=== PATIENT | female | born 1980 | race Caucasian/White ===

== ENCOUNTER 2018-12-02 21:55 | Emergency (ER) | payer OTHER ==
[2018-12-02] MEDS ORDERED: METOCLOPRAMIDE HCL ORAL SOLN 10 MG/10 ML UDCUP PO ONE (23:13)
[2018-12-02] MEDS ORDERED: MAG HYDROX/AL HYDROX/SIMETH SUSP 30 ML UDCUP PO ONE (23:13)
[2018-12-02] MEDS ORDERED: LIDOCAINE 2% VISCOUS SOLN 20 ML UDCUP PO ONE (23:13)
--- NOTE | 2018-12-02 23:29 | ER Document Report ---
Addendum entered and electronically signed by MAYKEL SU PA-C 12/02/18 23:34: Discharge - Discharge Clinical Impression: Cough Acute pharyngitis Qualifiers: Pharyngitis/tonsillitis etiology: unspecified etiology Qualified Code(s): J02.9 - Acute pharyngitis, unspecified Condition: Stable Disposition: HOME, SELF-CARE Instructions: Sore Throat ([facility]), Upper Respiratory Illness ([facility]) Additional Instructions: Maintain adequate fluid intake Take meds as directed Salt water gargles, throat sprays, mouthwash rinse, peroxide gargles tylenol as needed over the counter cold medication as needed for symptoms F/u: with your PCM in 2-3 days for a recheck Consider consult with ENT for ongoing/worsening symptoms Return to the ED with any fever, worsening pain, chest pain, neck pain/stiffness, shortness of breath, cough, drooling, trouble swallowing/breathing, abdominal pain, n/v/d, rash, or worsening/concerning symptoms otherwise. Prescriptions: Ondansetron [Zofran Odt 4 mg Tablet] 1 - 2 tab PO Q4H PRN #15 tab.rapdis PRN Reason: For Nausea/Vomiting Prednisone [Deltasone 10 mg Tablet] 10 mg PO DAILY #18 tablet Forms: Elevated Blood Pressure, Smoking Cessation Education Referrals: TREVOR COELHO DO [ASSOCIATE] - Follow up as needed Original Note: HPI - HPI Time Seen by Provider: 12/02/18 22:57 Pain Level: 5 Notes: Patient is a 38-year-old female no significant past medical history who presents to the emergency department complaining of a sore throat times 1 day with a dry nonproductive cough over the last week. Pt does have occ nausea w/o vomiting. Patient states that she is eating and drinking without difficulty otherwise. She is urinating normally and having normal bowel movements. She has tried [id number] meds with minimal relief. Patient states that she gets bronchitis about once per year. No other concerns or complaints at this time. No history of peritonsillar/pharyngeal abscess. Denies any headache, fever, neck pain, hoarseness, drooling, URI, chest pain, palpitations, syncope, shortness of breath, wheeze, dyspnea, abdominal pain, vomiting/diarrhea, urinary retention, dysuria, hematuria, or rash. - ROS Systems Reviewed and Negative: Yes All other systems reviewed and negative - CONSTITUTIONAL Constitutional: REPORTS: Chills - EENT EENT: REPORTS: Sore Throat - RESPIRATORY Respiratory: REPORTS: Coughing - dry - REPRODUCTIVE Reproductive: DENIES: : Past Medical History - Social History Smoking Status: Current Some Day Smoker Family History: Reviewed & Not Pertinent Patient has suicidal ideation: No Patient has homicidal ideation: No Renal/ Medical History: Denies: Hx Peritoneal Dialysis Vertical Provider Document - CONSTITUTIONAL Agree With Documented VS: Yes Notes: PHYSICAL EXAMINATION: GENERAL: Well-appearing, well-nourished and in no acute distress. A&Ox4. Answers questions appropriately. Moves comfortably w/o notable distress HEAD: Atraumatic, normocephalic. EYES: Pupils equal round and reactive to light, extraocular movements intact, sclera anicteric, conjunctiva are normal. ENT: EAC clear b/l. TM's intact b/l without erythema, fluid, or perforation. Nares patent and with clear discharge. oropharynx mild erythema without exudates. No tonsilar hypertrophy without erythema or exudate. No palatine shift. Uvula midline. No tongue protrusion. No drooling, hoarseness, or airway compromise. Moist mucous membranes. No sinus tenderness. NECK: Normal range of motion, supple without lymphadenopathy. No rigidity/meningismus. LUNGS: Breath sounds clear to auscultation bilaterally and equal. No wheezes rales or rhonchi. No retractions HEART: Regular rate and rhythm without murmurs, rubs, gallops. ABDOMEN: Soft, nontender, nondistended abdomen. No guarding, no rebound. No masses appreciated. Normal bowel sounds present. No CVA tenderness bilaterally. No hepatosplenomegaly. NEUROLOGICAL: Normal speech, normal gait. Normal sensory, motor exams PSYCH: Normal mood, normal affect. SKIN: Warm, Dry, normal turgor, no rashes or lesions noted. - INFECTION CONTROL TRAVEL OUTSIDE OF THE [place] IN LAST 30 DAYS: No Course - Re-evaluation Re-evalutation: 12/02/18 23:26 Patient is an afebrile, well-hydrated, 38-year-old female who presents to the emergency department with acute pharyngitis/cough which I suspect to be viral. Her cough may be post viral. Vitals are acceptable without any significant tachycardia, tachypnea, or hypoxia. PE is otherwise unremarkable. Lungs are clear to auscultation bilaterally. Patient is nontoxic-appearing and is tolerating p.o. without difficulty. GI cocktail did help. Rapid strep was negative with a throat culture pending. No further labs or imaging warranted at this time. Low suspicion for any meningitis, sepsis, peritonsillar/pharyngeal abscess, respiratory compromise, Richard's, or other emergent systemic condition at this time. Patient is aware this condition can change from initial presen tation and she needs to monitor symptoms closely. I will send her home with a prescription for Zofran as well as a steroid taper. Conservative measures otherwise for symptoms. Recheck with your PCM in 2-3 days. Return to the ED with any worsening/concerning symptoms otherwise as reviewed in discharge. Patient is in agreement. - Vital Signs Vital signs: Temp Pulse Resp BP Pulse Ox 97.6 F 77 17 128/77 H 100 12/02/18 22:24 12/02/18 22:24 12/02/18 22:24 12/02/18 22:24 12/02/18 22:24 Discharge - Discharge Clinical Impression: Cough Acute pharyngitis Qualifiers: Pharyngitis/tonsillitis etiology: unspecified etiology Qualified Code(s): J02.9 - Acute pharyngitis, unspecified Condition: Stable Disposition: HOME, SELF-CARE Instructions: Sore Throat ([facility]), Upper Respiratory Illness ([facility]) Additional Instructions: Maintain adequate fluid intake Take meds as directed Salt water gargles, throat sprays, mouthwash rinse, peroxide gargles tylenol/ibuprofen as needed over the counter cold medication as needed for symptoms F/u: with your PCM in 2-3 days for a recheck Consider consult with ENT for ongoing/worsening symptoms Return to the ED with any fever, worsening pain, chest pain, neck pain/stiffness, shortness of breath, cough, drooling, trouble swallowing/breathing, abdominal pain, n/v/d, rash, or worsening/concerning symptoms otherwise. Prescriptions: Ondansetron [Zofran Odt 4 mg Tablet] 1 - 2 tab PO Q4H PRN #15 tab.rapdis PRN Reason: For Nausea/Vomiting Prednisone [Deltasone 10 mg Tablet] 10 mg PO DAILY #18 tablet Forms: Elevated Blood Pressure, Smoking Cessation Education Referrals: TREVOR COELHO DO [ASSOCIATE] - Follow up as needed
[2018-12-03 00:28] VITALS: BP 119/78
== END 2018-12-03 00:26 | disposition home or self-care (01) ==
LOC: ER 21:55
DX: J02.9 Acute pharyngitis, unspecified (principal); R05 Cough; F17.200 Nicotine dependence, unspecified, uncomplicated
CPT/HCPCS: 99283; 87070; 87880; J3490

== ENCOUNTER 2019-08-20 23:29 | Emergency (ER) | payer OTHER ==
--- NOTE | 2019-08-21 00:53 | RADIOLOGY REPORT (SQ) ---
EXAM DESCRIPTION: XR CHEST 2 VIEWS COMPLETED DATE/TME: 08/21/2019 00:00 CLINICAL HISTORY: 39 years Female chest pain COMPARISON: None. FINDINGS: The cardiomediastinal silhouette appears unremarkable. No consolidating infiltrates or pleural effusions. No pneumothorax. IMPRESSION: No acute abnormality is identified.
[2019-08-21 01:03] LABS: ABSOLUTE EOSINOPHILS # (AUTO) 0.1 10^3/uL (0.0-0.6); ABSOLUTE LYMPHOCYTES (AUTO) 2.2 10^3/uL (0.5-4.7); ABSOLUTE MONOCYTES (AUTO) 0.3 10^3/uL (0.1-1.4); ABSOLUTE NEUT (AUTO) 1.8 10^3/uL (1.7-8.2); BASOPHILS % (AUTO) 0.6 % (0-2); EOSINOPHILS % (AUTO) 1.2 % (0-6); HEMATOCRIT 38.6 % (36.0-47.0); HEMOGLOBIN 13.3 g/dL (12.0-15.5); LYMPHOCYTES % (AUTO) 50.5 % (13-45); MEAN CORPUSCULAR HEMOGLOBIN 32.9 pg (27.0-33.4); MEAN CORPUSCULAR HGB CONC 34.3 g/dL (32.0-36.0); MEAN CORPUSCULAR VOLUME 96 fl (80-97); MONOCYTES % (AUTO) 6.6 % (3-13); PLATELET COUNT 144 10^3/uL (150-450); RED BLOOD COUNT 4.02 10^6/uL (3.72-5.28); RED CELL DISTRIBUTION WIDTH 13.1 % (11.5-14.0); SEGMENTED NEUTROPHILS % (AUTO) 41.1 % (42-78); TOTAL CELLS COUNTED % (AUTO) 100 %; WHITE BLOOD COUNT 4.3 10^3/uL (4.0-10.5)
[2019-08-21 01:28] LABS: ALBUMIN 3.9 g/dL (3.5-5.0); ALKALINE PHOSPHATASE 64 U/L (38-126); ANION GAP 9 (5-19); ASPARTATE AMINO TRANSFERASE 18 U/L (14-36); BILIRUBIN,DIRECT 0.2 mg/dL (0.0-0.4); BILIRUBIN,TOTAL 0.4 mg/dL (0.2-1.3); BLOOD UREA NITROGEN 9 mg/dL (7-20); CALCIUM 8.8 mg/dL (8.4-10.2); CARBON DIOXIDE 27 mmol/L (22-30); CHLORIDE 105 mmol/L (98-107); CREATINE KINASE 72 U/L (30-135); GLUCOSE 80 mg/dL (75-110); TOTAL PROTEIN 6.7 g/dL (6.3-8.2)
[2019-08-21 01:44] LABS: CREATINE KINASE MB 0.24 ng/mL (<4.55)
[2019-08-21 01:48] LABS: TROPONIN I < 0.012 ng/mL
--- NOTE | 2019-08-21 02:33 | ER Document Report ---
ED General - General Chief Complaint: Chest Pain Stated Complaint: CHEST PAIN Time Seen by Provider: 08/21/19 00:33 Primary Care Provider: PRADEEP YEBOAH MD [Primary Care Provider] - Follow up in 3-5 days Mode of Arrival: Ambulatory Information source: Patient Notes: This 39-year-old female presents emergency department with complaints of chest pain this been coming and going for the last couple weeks. Reports she is had a lot of stress at home due to her teenage daughter. She reports that her mental health provider recently increased her Klonopin and it helps the pain go away but today did not. She reports that around 1030pm she started having some pain and pressure to the center of her chest and went to her left shoulder. She reports she has episodes of stabbing pain. Reports it made her feel clammy lightheaded. She also vomited. She reports she just feels off right now, no energy. Denies history of cardiac disease. Denies family history of cardiac disease. Reports history of panic attacks and anxiety. Reports that she now has a bad headache. She reports she took Tylenol at home without relief of symptoms. TRAVEL OUTSIDE OF THE [place] IN LAST 30 DAYS: No - HPI Onset: Other Onset/Duration: Waxing and waning Quality of pain: Achy, Sharp Associated symptoms: Vomiting Exacerbated by: Denies Relieved by: Denies Similar symptoms previously: Yes Recently seen / treated by doctor: No - Related Data Allergies/Adverse Reactions: NSAIDS (Non-Steroidal Anti-Inflamma Allergy (Verified 12/02/18 22:22) Past Medical History - General Information source: Patient Last Menstrual Period: thursday - Social History Smoking Status: Current Every Day Smoker Cigarette use (# per day): Yes Chew tobacco use (# tins/day): No Frequency of alcohol use: None Drug Abuse: None Lives with: Family Family History: Reviewed & Not Pertinent Patient has suicidal ideation: No Patient has homicidal ideation: No Renal/ Medical History: Reports: Other - endometreosis. Denies: Hx Peritoneal Dialysis Psychiatric Medical History: Reports: Hx Anxiety, Other - panic attacks Past Surgical History: Reports: Hx Cholecystectomy Review of Systems - Review of Systems Notes: Review HPI for review of systems., All other systems negative Physical Exam - Vital signs Vitals: Temp Pulse Resp BP Pulse Ox 98.4 F 68 18 136/83 H 100 08/20/19 23:42 08/20/19 23:42 08/20/19 23:42 08/20/19 23:42 08/20/19 23:42 - Notes Notes: PHYSICAL EXAMINATION: GENERAL: Well-appearing and in no acute distress HEAD: Atraumatic, normocephalic. EYES: extraocular movements intact, sclera anicteric, conjunctiva are normal. ENT: nares patent,. Moist mucous membranes. NECK: Normal range of motion, supple without lymphadenopathy LUNGS: CTAB and equal. No wheezes rales or rhonchi. HEART: Regular rate and rhythm without murmurs ABDOMEN: Soft, no tenderness. No guarding, no rebound EXTREMITIES: Normal range of motion, no pitting edema. No cyanosis. NEUROLOGICAL: Cranial nerves grossly intact. Normal sensory/motor exams. PSYCH: Normal mood, normal affect. SKIN: Warm, Dry, normal turgor, no rashes or lesions noted Course - Re-evaluation Re-evalutation: 08/21/19 02:32 This 39-year-old female presents emergency department with complaints of chest pain for the last couple weeks, ongoing. Reports she is had increased stress at home due to her teenage daughter. Reports she also has a history of panic attacks and anxiety. She did follow-up with her mental health provider and he increased the Klonopin. Reports she did feel better after that. She reports that helps pain go away. Tonight it did not but she did not take her dose of klonopin yet. She reports she had pain pressure to the left side of her chest w hen up her left shoulder also went up her left neck and into her head. She has had severe headaches she reports she did Tylenol without relief of symptoms. Cardiac enzymes are negative at this time. EKG shows sinus rhythm no ST elevation no T wave inversion. Patient received Motrin for headache and her Klonopin. Reports she is feeling better. She reports that when she has her panic anxiety attacks her chest will feel basically the same way with palpitations. This time the pain felt very i ntense. Discussed all results with her. Patient is ready to be discharged home feels she feels safe. Feels better. She was instructed on the importance of follow-up with her primary care provider for referral to cardiology for possible stress test. 08/21/19 00:39 08/21/19 00:39 MCV 96 fl (80-97) 08/21/19 00:39 MCH 32.9 pg (27.0-33.4) 08/21/19 00:39 MCHC 34.3 g/dL (32.0-36.0) 08/21/19 00:39 RDW 13.1 % (11.5-14.0) 08/21/19 00:39 Seg Neutrophils % 41.1 % (42-78) L 08/21/19 00:39 Chloride 105 mmol/L (98-107) 08/21/19 00:39 Carbon Dioxide 27 mmol/L (22-30) 08/21/19 00:39 Anion Gap 9 (5-19) 08/21/19 00:39 Est GFR ( Amer) > 60 (>60) 08/21/19 00:39 Glucose 80 mg/dL (75-110) 08/21/19 00:39 Calcium 8.8 mg/dL (8.4-10.2) 08/21/19 00:39 Total Bilirubin 0.4 mg/dL (0.2-1.3) 08/21/19 00:39 AST 18 U/L (14-36) 08/21/19 00:39 Alkaline Phosphatase 64 U/L (38-126) 08/21/19 00:39 Total Protein 6.7 g/dL (6.3-8.2) 08/21/19 00:39 Albumin 3.9 g/dL (3.5-5.0) 10 00:39 1008/21/19 00:39 00:39 Creatine Kinase 72 CK-MB (CK-2) 0.24 Troponin I < 0.012 Chest X-Ray 08/21/19 00:00 IMPRESSION: No acute abnormality is identified. 08/21/19 04:27 Presentation of chest pain in an otherwise well-appearing patient. Low clinical suspicion for ACS given the clinical history, exam, EKG without ST elevation or depressions, and negative initial troponin. Heart score less than or equal to 3. PE also seems unlikely given the clinical history, absence of tachycardia or dyspnea. Patient's PERC criteria is negative. Chest x-ray without evidence of pneumothorax or pneumonia. No widened mediastinum. Inferior dissection also seems unlikely given history, symmetric pulses, chest x-ray and vitals. Given the reassuring evaluation, will plan for discharge home at this time with return precautions and follow-up recommendations. Patient has been instructed to return if symptoms worsen or change in any way. HEART score- 1 History- denies cardiac hx ECG- NSR no ST elevation no t wave inversion Age- 39 yo Risk Factors- smoker, denies CAD, Denies family hx CAD Troponin- NEG X2 Total= 1 Chest pain in a patient without evidence of cardiac or other serious etiology during the workup today. I discussed with patient that based on age, risk factors and emergency department testing, the likelihood that her symptoms are related to her heart is very low (estimated risk of heart attack or over the next 30 days of less than 1% ). The patient demonstrates decision-making capacity and has verbalized an understanding of these risks to me. Based on this, the patient was instructed to follow-up up as an outpatient. Usual chest pain return precautions reviewed. Patient verbalized understanding. 08/21/19 05:52 08/21/19 06:50 - Vital Signs Vital signs: Temp Pulse Resp BP Pulse Ox 98.4 F 68 16 121/88 H 100 08/20/19 23:42 08/20/19 23:42 08/21/19 04:01 08/21/19 04:00 08/21/19 04:01 - Laboratory Result Diagrams: 08/21/19 00:39 08/21/19 00:39 Laboratory results interpreted by me: 08/21/19 00:39 Plt Count 144 L Lymph % (Auto) 50.5 H Seg Neutrophils % 41.1 L - Diagnostic Test Radiology reviewed: Image reviewed, Reports reviewed - EKG Interpretation by Me EKG shows normal: Sinus rhythm Rate: Bradycardia - pt reports HR is always low Rhythm: NSR Additional EKG results interpreted by me: 08/21/19 02:[address] elevation no T wave inversion Discharge - Discharge Clinical Impression: Chest pain Qualifiers: Chest pain type: unspecified Qualified Code(s): R07.9 - Chest pain, unspecified Condition: Stable Disposition: HOME, SELF-CARE Instructions: Chest Pain of Unclear Cause ([facility]) Additional Instructions: *You have been evaluated for chest pain *quit smoking *Follow up with a primary care provider within 5 days for referral to cardiology *Return to ED for worsening condition, changes, needs, difficulty breathing, chest pains Forms: Smoking Cessation Education Referrals: PRADEEP YEBOAH MD [Primary Care Provider] - Follow up in 3-5 days
[2019-08-21] MEDS ORDERED: CLONAZEPAM 1 MG TABLET PO ONE (04:20)
[2019-08-21] MEDS ORDERED: IBUPROFEN 800 MG TABLET PO ONE (04:23)
[2019-08-21 04:57] VITALS: BP 121/88
--- NOTE | 2019-08-21 08:47 | EKG REPORT ---
SEVERITY:- BORDERLINE ECG - SINUS BRADYCARDIA BORDERLINE T ABNORMALITIES, ANTERIOR LEADS : Confirmed by: Ivette Hernadez MD 21-Aug-2019 08:46:54
--- NOTE | 2019-08-21 08:47 | EKG REPORT ---
SEVERITY:- OTHERWISE NORMAL ECG - SINUS RHYTHM BORDERLINE LEFT AXIS DEVIATION : Confirmed by: Ivette Hernadez MD 21-Aug-2019 08:46:59
== END 2019-08-21 06:17 | disposition home or self-care (01) ==
LOC: ER 23:29
DX: R07.89 Other chest pain (principal); M25.512 Pain in left shoulder; M54.2 Cervicalgia; R42 Dizziness and giddiness; R11.10 Vomiting, unspecified; F43.9 Reaction to severe stress, unspecified; F41.9 Anxiety disorder, unspecified; F41.0 Panic disorder [episodic paroxysmal anxiety]; Z79.899 Other long term (current) drug therapy; R51 Headache; F17.210 Nicotine dependence, cigarettes, uncomplicated; Z88.8 Allergy status to other drugs, medicaments and biological substances
CPT/HCPCS: 36415; 71046; 80053; 82550; 82553; 84484; 85025; 93005; 93010; 99285

== ENCOUNTER 2019-09-04 02:46 | Emergency (ER) | payer OTHER ==
--- NOTE | 2019-09-04 03:35 | ER Document Report ---
ED Psych Disorder / Suicide - General Chief Complaint: Psych Problem Stated Complaint: PSYCH Time Seen by Provider: 09/04/19 03:15 Primary Care Provider: PRADEEP YEBOAH MD [Primary Care Provider] - Follow up as needed Notes: Patient is a 39-year-old female presents to the emergency department for multiple complaints. Patient voices she heard her speaking with someone about wanting to kill her. States she her told that said person that was for the insurance money. Patient voices today she also "saw little tiny people walking around." Patient then voices she is unsure if they were real. Patient voices she does not feel safe at home, she thinks "everyone is out to get me." Patient also voices she saw her and her 15-year-old daughter in the bathroom. Patient voices she feels as though there was "something sexual going on." Patient does not further want to discuss it. Start crying and grabbing her chest. I have asked the patient if she has spoken with police. Patient voices "police do not believe me." Patient's denying any homicidal or suicidal ideations at this time. Patient voices she does take Effexor, Cymbalta, Klonopin For anxiety and depression. TRAVEL OUTSIDE OF THE [place] IN LAST 30 DAYS: No - Related Data Allergies/Adverse Reactions: NSAIDS (Non-Steroidal Anti-Inflamma Allergy (Verified 12/02/18 22:22) Home Medications: effexor Past Medical History - Social History Smoking Status: Never Smoker Chew tobacco use (# tins/day): No Frequency of alcohol use: None Drug Abuse: None Family History: Reviewed & Not Pertinent Patient has suicidal ideation: No Patient has homicidal ideation: No Renal/ Medical History: Denies: Hx Peritoneal Dialysis Psychiatric Medical History: Reports: Hx Anxiety Past Surgical History: Reports: Hx Cholecystectomy Physical Exam - Vital signs Vitals: Temp Pulse Resp BP 98.1 F 92 18 148/90 H 09/04/19 02:51 09/04/19 02:51 09/04/19 02:51 09/04/19 02:51 Course - Re-evaluation Re-evalutation: 09/04/19 05:02 Patient has been pacing in her room back and forth. Patient voices she is unab le to sleep. Patient voices her thoughts are "going so fast." I discussed with charge nurse Randee calling PD. Randee states she has spoken with an officer, see note provided by her. States she is waiting on a return phone call from PD. Discussed with my attending Dr. Shelton, Geovanna has not helped the pt. at all. Will try Geodon. 09/04/19 07:09 Day shift charge Selena will be calling PD again as rn ante partum charge lpn has not heard back. Pt. is currently resting comfortably. Awaiting psychiatric evaluation. - Vital Signs Vital signs: Temp Pulse Resp BP Pulse Ox 98.1 F 89 20 128/81 H 100 09/04/19 06:42 09/04/19 06:42 09/04/19 06:42 09/04/19 06:42 09/04/19 06:42 - Laboratory Result Diagrams: 09/04/19 03:15 09/04/19 03:15 Laboratory results interpreted by me: 09/04/19 09/04/19 09/04/19 03:03 03:15 03:15 Plt Count 130 L Glucose 117 H Urine Urobilinogen 2.0 H Salicylates < 1.0 L Acetaminophen < 10 L Discharge - Discharge Clinical Impression: Hallucination Condition: Stable Disposition: PSYCH HOSP/UNIT Referrals: PRADEEP YEBOAH MD [Primary Care Provider] - Follow up as needed
[2019-09-04 03:43] LABS: ABSOLUTE LYMPHOCYTES (AUTO) 0.7 10^3/uL (0.5-4.7); ABSOLUTE MONOCYTES (AUTO) 0.3 10^3/uL (0.1-1.4); ABSOLUTE NEUT (AUTO) 3.2 10^3/uL (1.7-8.2); BASOPHILS % (AUTO) 0.3 % (0-2); EOSINOPHILS % (AUTO) 0.1 % (0-6); HEMATOCRIT 39.9 % (36.0-47.0); HEMOGLOBIN 13.8 g/dL (12.0-15.5); LYMPHOCYTES % (AUTO) 16.4 % (13-45); MEAN CORPUSCULAR HEMOGLOBIN 33.1 pg (27.0-33.4); MEAN CORPUSCULAR HGB CONC 34.7 g/dL (32.0-36.0); MEAN CORPUSCULAR VOLUME 95 fl (80-97); MONOCYTES % (AUTO) 7.7 % (3-13); PLATELET COUNT 130 10^3/uL (150-450); RED BLOOD COUNT 4.19 10^6/uL (3.72-5.28); RED CELL DISTRIBUTION WIDTH 13.2 % (11.5-14.0); SEGMENTED NEUTROPHILS % (AUTO) 75.5 % (42-78); TOTAL CELLS COUNTED % (AUTO) 100 %; WHITE BLOOD COUNT 4.3 10^3/uL (4.0-10.5)
[2019-09-04] MEDS ORDERED: LORAZEPAM 1 MG TABLET PO ONE (03:55)
[2019-09-04 03:57] LABS: APPEARANCE,URINE SLIGHTLY-CLOUDY; BILIRUBIN,URINE NEGATIVE (NEGATIVE); COLOR,URINE YELLOW; GLUCOSE, URINE NEGATIVE (NEGATIVE); KETONES,URINE NEGATIVE (NEGATIVE); LEUKOCYTE ESTERASE,URINE NEGATIVE (NEGATIVE); NITRITE,URINE NEGATIVE (NEGATIVE); PROTEIN,URINE NEGATIVE (NEGATIVE); URINE SPECIFIC GRAVITY 1.016
[2019-09-04 04:07] LABS: ALBUMIN 4.6 g/dL (3.5-5.0); ALKALINE PHOSPHATASE 80 U/L (38-126); ANION GAP 12 (5-19); ASPARTATE AMINO TRANSFERASE 20 U/L (14-36); BILIRUBIN,DIRECT 0.2 mg/dL (0.0-0.4); BILIRUBIN,TOTAL 0.5 mg/dL (0.2-1.3); BLOOD UREA NITROGEN 10 mg/dL (7-20); CALCIUM 9.6 mg/dL (8.4-10.2); CARBON DIOXIDE 22 mmol/L (22-30); CHLORIDE 107 mmol/L (98-107); GLUCOSE 117 mg/dL (75-110); POTASSIUM 3.7 mmol/L (3.6-5.0); TOTAL PROTEIN 7.7 g/dL (6.3-8.2)
[2019-09-04 04:08] LABS: URINE AMPHETAMINES SCREEN NEGATIVE; URINE BARBITURATES SCREEN NEGATIVE; URINE BENZODIAZEPINES SCREEN NEGATIVE; URINE COCAINE SCREEN NEGATIVE; URINE MARIJUANA (THC) SCREEN NEGATIVE; URINE METHADONE SCREEN NEGATIVE; URINE PHENCYCLIDINE SCREEN NEGATIVE
[2019-09-04 04:09] LABS: ACETAMINOPHEN < 10 ug/mL (10-30); ALCOHOL < 10 mg/dL (NONE DETECTED); SALICYLATE < 1.0 mg/dL (2.0-20.0)
[2019-09-04 04:34] LABS: CREATINE KINASE MB 0.62 ng/mL (<4.55); TROPONIN I < 0.012 ng/mL
[2019-09-04] MEDS ORDERED: ZIPRASIDONE MESYLATE INJ/PF 20 MG SDV IM ONE (05:02)
--- NOTE | 2019-09-04 10:23 | EKG REPORT ---
SEVERITY:- ABNORMAL ECG - SINUS RHYTHM BORDERLINE LEFT AXIS DEVIATION NONSPECIFIC T ABNORMALITIES, ANTERIOR LEADS BORDERLINE PROLONGED QT INTERVAL : Confirmed by: Debbie Alberto 04-Sep-2019 10:22:54
[2019-09-04] MEDS ORDERED: NICOTINE 21 MG/24 HR PATCH.TD24 TD ONE (11:26)
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
--- NOTE | 2019-09-04 13:01 | ER Document Report ---
Doctor's Note Notes: 09/04/19 11:20 Patient requesting a nicotine patch. I did go to the bedside and patient reports smoking about 1 pack/day. Patient quickly changes the subject starts asking for food. Will order a nicotine patch. Waiting for mental health recommendations in regards to medications. Patient's breathing is even and unlabored and she is in no acute distress. 09/04/19 15:32 Patient's hCG was negative. I have placed medication recommendations into the MAR.
[2019-09-04] MEDS ORDERED: BENZTROPINE MESYLATE 1 MG TABLET PO SCH (15:30)
[2019-09-04] MEDS ORDERED: VENLAFAXINE HCL 37.5 MG CAP.SR.24H PO SCH (15:31)
[2019-09-04 18:01] VITALS: BP 133/88
[2019-09-04] MEDS ORDERED: OLANZAPINE 5 MG TABLET PO SCH (22:00)
[2019-09-05] MEDS ORDERED: OLANZAPINE 2.5 MG TABLET PO SCH (10:00)
== END 2019-09-04 17:50 ==
LOC: ER 02:46
DX: R44.1 Visual hallucinations (principal); R42 Dizziness and giddiness; Z90.49 Acquired absence of other specified parts of digestive tract
CPT/HCPCS: 93005; 36415; 82553; 80307 ×4; 82550; 84443; 85025; 81025; 80053; 81001; 84484; 93010; J3490; J3486

== ENCOUNTER 2019-10-29 13:33 | Emergency (ER) | payer OTHER ==
[2019-10-29 13:38] VITALS: BP 143/87
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
== END 2019-10-29 14:05 | disposition home or self-care (01) ==
LOC: ER 13:33
DX: Z76.0 Encounter for issue of repeat prescription (principal); F41.9 Anxiety disorder, unspecified; T42.4X6A Underdosing of benzodiazepines, initial encounter; Z91.128 Patient's intentional underdosing of medication regimen for other reason; Z91.14 Patient's other noncompliance with medication regimen; Z79.899 Other long term (current) drug therapy; R11.0 Nausea; R41.0 Disorientation, unspecified; F17.210 Nicotine dependence, cigarettes, uncomplicated
CPT/HCPCS: 99281

== ENCOUNTER 2020-07-17 01:00 | Emergency (ER) | payer OTHER ==
--- NOTE | 2020-07-17 02:08 | ER Document Report ---
ED General - General TRAVEL OUTSIDE OF THE [place] IN LAST 30 DAYS: No - Related Data Home Medications: Seroquel, Klonopin <LOREN LANG - Last Filed: 07/17/20 04:21> <GRIFFIN ROSEN - Last Filed: 07/17/20 09:02> - General Chief Complaint: Psych Problem Stated Complaint: PSYCH Time Seen by Provider: 07/17/20 01:16 - HPI Notes: Patient is a 40-year-old female with a history of bipolar disorder who presents to the emergency department for evaluation. Evidently she drove into her garage, left the car running, shut the door, and attempt to hurt herself. She states she "just cannot deal with the anxiety anymore." She became tearful when she was telling me that she had to "beg for just 10 Klonopin a month." She denies any homicidal ideation. She has a history of hallucinations, states she is not hallucinating now. She was going to therapy, but states that has been put on hold by [facility]. (LOREN LANG) - Related Data Allergies/Adverse Reactions: NSAIDS (Non-Steroidal Anti-Inflamma Allergy (Verified 10/29/19 13:41) Past Medical History - General Information source: Patient - Social History Smoking Status: Current Every Day Smoker Drug Abuse: None Family History: Reviewed & Not Pertinent Renal/ Medical History: Denies: Hx Peritoneal Dialysis Psychiatric Medical History: Reports: Hx Anxiety, Hx Bipolar Disorder, Hx Depression Past Surgical History: Reports: Hx Cholecystectomy <LOREN LANG - Last Filed: 07/17/20 04:21> Review of Systems - Review of Systems Constitutional: No symptoms reported EENT: No symptoms reported Cardiovascular: No symptoms reported Respiratory: No symptoms reported Gastrointestinal: No symptoms reported Genitourinary: No symptoms reported Musculoskeletal: No symptoms reported Skin: No symptoms reported Neurological/Psychological: See HPI <LOREN LANG - Last Filed: 07/17/20 04:21> Physical Exam <LOREN LANG - Last Filed: 07/17/20 04:21> - Vital signs Vitals: Temp Pulse Resp BP Pulse Ox 97.8 F 89 16 131/90 H 97 07/17/20 01:12 07/17/20 01:12 07/17/20 01:12 07/17/20 01:12 07/17/20 01:12 - Notes Notes: Patient became extremely agitated during my interview, changed her demeanor from depressed to agitated and aggressive very quickly. Based on this change, I did not feel comfortable and physically approaching the patient for complete exam. This is a 40-year-old female who appears her stated age, in no acute distress. Her head is normocephalic and appears atraumatic, pupils are round and equal. She does not appear to have any respiratory distress. She is moving all 4 extremities spontaneously. No gross facial asymmetry. Patient has a labile mood, went from tearful to angry very quickly, does not appear to be reacting to internal stimuli. Skin is warm and dry. She has eczematous changes on bilateral elbows and forearms. (LOREN LANG) Course - Laboratory Result Diagrams: 07/17/20 02:26 07/17/20 02:26 <LOREN LANG - Last Filed: 07/17/20 04:21> - Laboratory Result Diagrams: 07/17/20 02:26 07/17/20 02:26 <GRIFFIN ROSEN - Last Filed: 07/17/20 09:02> - Re-evaluation Re-evalutation: 07/17/20 02:29 Patient presents to the emergency department for evaluation. During the course of my interview, the patient stated "you sound to clinical, not empathetic." At this point she became very aggressive and her body language. In order to de- escalate the patient, I asked her a series of questions, but decided against approaching her for a physical exam. I explained to her that I would order her usual dose of Seroquel, but I did not think it appropriate to treat her with benzodiazepines at this time. I did fill out 24-hour hold paperwork. Laboratory investigations have been ordered. Patient is currently stable. 07/17/20 04:21 Patient's laboratory investigations reveal acute alcohol intoxication. Again the patient is not being very forthcoming with me in regards to her history. IVC orders already placed. The patient is on [employer], we do not have an equivalent in the hospital to my knowledge. She did get her Seroquel. IVC paperwork notarized. Patient is medically cleared, awaiting psychosocial evaluation. (LOREN LANG) 07/17/20 09:02 I reviewed the patient's chart and lab work. Labs do not show any acute abnormalities. Awaiting psychiatric evaluation (GRIFFIN ROSEN) - Vital Signs Vital signs: Temp Pulse Resp BP Pulse Ox 98.5 F 85 18 100/61 96 07/17/20 06:02 07/17/20 06:02 07/17/20 06:02 07/17/20 06:02 07/17/20 06:02 - Laboratory Laboratory results interpreted by me: 07/17/20 07/17/20 02:26 02:26 MCH 34.6 H Sodium 145.3 H Chloride 112 H Salicylates < 1.0 L Acetaminophen < 10 L - EKG Interpretation by Me Additional EKG results interpreted by me: 07/17/20 02:31 Sinus mechanism with a rate of 80 bpm. Left axis deviation. Nonspecific ST changes, but no acute ST elevation concerning for infarction. (LOREN LANG) Discharge <LOREN LANG - Last Filed: 07/17/20 04:21> <GRIFFIN ROSEN - Last Filed: 07/17/20 09:02> - Discharge Clinical Impression: Suicidal ideation Alcohol intoxication Qualifiers: Complication of substance-induced condition: uncomplicated Qualified Code(s): F10.920 - Alcohol use, unspecified with intoxication, uncomplicated Condition: Stable Disposition: OTHER
[2020-07-17 02:10] LABS: APPEARANCE,URINE CLEAR; BILIRUBIN,URINE NEGATIVE (NEGATIVE); COLOR,URINE COLORLESS; GLUCOSE, URINE NEGATIVE (NEGATIVE); KETONES,URINE NEGATIVE (NEGATIVE); LEUKOCYTE ESTERASE,URINE NEGATIVE (NEGATIVE); NITRITE,URINE NEGATIVE (NEGATIVE); PROTEIN,URINE NEGATIVE (NEGATIVE); URINE SPECIFIC GRAVITY 1.002; UROBILINOGEN,URINE NEGATIVE mg/dL (<2.0)
[2020-07-17 02:22] LABS: URINE AMPHETAMINES SCREEN NEGATIVE; URINE BARBITURATES SCREEN NEGATIVE; URINE BENZODIAZEPINES SCREEN NEGATIVE; URINE COCAINE SCREEN NEGATIVE; URINE MARIJUANA (THC) SCREEN NEGATIVE; URINE METHADONE SCREEN NEGATIVE; URINE PHENCYCLIDINE SCREEN NEGATIVE
[2020-07-17] MEDS ORDERED: QUETIAPINE FUMARATE 100 MG TABLET PO ONE ×2 (02:30→02:43)
[2020-07-17 02:43] LABS: ABSOLUTE EOSINOPHILS # (AUTO) 0.1 10^3/uL (0.0-0.6); ABSOLUTE MONOCYTES (AUTO) 0.3 10^3/uL (0.1-1.4); PLATELET COUNT 153 10^3/uL (150-450); TOTAL CELLS COUNTED % (AUTO) 100 %
[2020-07-17 02:54] LABS: ABSOLUTE NEUT (AUTO) 2.5 10^3/uL (1.7-8.2); BASOPHILS % (AUTO) 0.3 % (0-2); EOSINOPHILS % (AUTO) 1.4 % (0-6); HEMATOCRIT 40.5 % (36.0-47.0); HEMOGLOBIN 14.6 g/dL (12.0-15.5); LYMPHOCYTES % (AUTO) 40.5 % (13-45); MEAN CORPUSCULAR HEMOGLOBIN 34.6 pg (27.0-33.4); MEAN CORPUSCULAR VOLUME 96 fl (80-97); MONOCYTES % (AUTO) 5.9 % (3-13); RED CELL DISTRIBUTION WIDTH 12.3 % (11.5-14.0); SEGMENTED NEUTROPHILS % (AUTO) 51.9 % (42-78); WHITE BLOOD COUNT 4.9 10^3/uL (4.0-10.5)
[2020-07-17 03:06] LABS: ALBUMIN 4.5 g/dL (3.5-5.0); ALCOHOL 257 mg/dL (NONE DETECTED); ALKALINE PHOSPHATASE 80 U/L (38-126); ANION GAP 11 (5-19); ASPARTATE AMINO TRANSFERASE 22 U/L (14-36); BILIRUBIN,DIRECT 0.3 mg/dL (0.0-0.4); BILIRUBIN,TOTAL 0.4 mg/dL (0.2-1.3); BLOOD UREA NITROGEN 10 mg/dL (7-20); CARBON DIOXIDE 22 mmol/L (22-30); CHLORIDE 112 mmol/L (98-107); GLUCOSE 97 mg/dL (75-110); POTASSIUM 4.3 mmol/L (3.6-5.0); TOTAL PROTEIN 7.4 g/dL (6.3-8.2)
[2020-07-17 03:32] LABS: ACETAMINOPHEN < 10 ug/mL (10-30); SALICYLATE < 1.0 mg/dL (2.0-20.0)
--- NOTE | 2020-07-17 06:21 | EKG REPORT ---
SEVERITY:- ABNORMAL ECG - SINUS RHYTHM LAD, CONSIDER LEFT ANTERIOR FASCICULAR BLOCK LOW VOLTAGE THROUGHOUT : Confirmed by: Raymond Cruz MD 17-Jul-2020 06:20:51
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
[2020-07-18 06:55] VITALS: BP 109/86
== END 2020-07-18 07:49 | disposition other institution (70) ==
LOC: ER 01:00
DX: T14.91XA Suicide attempt, initial encounter (principal); T58.02XA Toxic effect of carbon monoxide from motor vehicle exhaust, intentional self-harm, initial encounter; Y92.89 Other specified places as the place of occurrence of the external cause; F10.120 Alcohol abuse with intoxication, uncomplicated; F31.9 Bipolar disorder, unspecified; Z79.899 Other long term (current) drug therapy; Z88.8 Allergy status to other drugs, medicaments and biological substances; F17.200 Nicotine dependence, unspecified, uncomplicated
CPT/HCPCS: 36415; 80053; 80307; 81001; 85025; 93005; 93010; 99285